=== PATIENT | male | born 1965 | race Caucasian/White ===

== ENCOUNTER 2023-12-26 07:10 | Day surgery (SDC) | payer OTHER ==
[~2023-12-26] VITALS: Ht 177.8 cm; Wt 90.9 kg
[~2023-12-26 07:10] MED LIST: ATOR40TA28 PO; CARV25 PO; LISI-893 PO
[2023-12-26] MEDS ORDERED: LIDOCAINE 4% 50 ML SOLUTION TP ONE (07:11)
[2023-12-26] MEDS ORDERED: BENZOCAINE 20% 50 MCG/SPRAY 57 GM TP ONE (07:11)
[2023-12-26] MEDS ORDERED: LIDOCAINE 2% 11 ML JELLY TP ONE (07:11)
[2023-12-26] MEDS ORDERED: FentaNYL CITRATE PF 100 MCG/2 ML VIAL ONE (07:20)
[2023-12-26] MEDS ORDERED: MIDAZOLAM HCL 2 MG/2 ML VIAL ONE (07:20)
[2023-12-26] MEDS ORDERED: TIOT4MIS3 NASAL (07:51)
[2023-12-26] MEDS ORDERED: ALOG25TA PO (07:51)
[2023-12-26] MEDS ORDERED: OMEP20 PO (07:51)
[2023-12-26 09:15] LABS: GLUCOMETER DEV NAME(LOC) SDS.; GLUCOSE,POINT OF CARE 108 MG/DL (70-110)
[2023-12-26 09:35] VITALS: PULSE 65; RESP 18; O2SAT 98
[2023-12-26] MEDS ORDERED: MethylPREDNISolone SOD SUCC 125 MG/2 ML VIAL ONE (10:03)
[2023-12-26] MEDS: SODIUM CHLORIDE 0.9% 1,000 ML IV ONE (10:05)
[2023-12-26] MEDS: MethylPREDNISolone SOD SUCC 125 MG/2 ML VIAL IVP ONE (10:06)
== END 2023-12-26 11:20 | disposition home or self-care (01) ==
LOC: SURGERY 07:10
PROVIDERS: ATTEND Internal Medicine Critical Care Medicine
DX: R05.3 Chronic cough (principal); R06.2 Wheezing; R91.8 Other nonspecific abnormal finding of lung field; J98.09 Other diseases of bronchus, not elsewhere classified; J84.10 Pulmonary fibrosis, unspecified; J98.8 Other specified respiratory disorders; J44.9 Chronic obstructive pulmonary disease, unspecified; I51.9 Heart disease, unspecified; Z85.21 Personal history of malignant neoplasm of larynx; Z88.0 Allergy status to penicillin
CPT/HCPCS: 82962; 87206; 87101; 87220; 87070; 88108; 87186; 31623; 31624; 71045; 87015; J3010; J2250; J2919; Q9967; Z7610